=== PATIENT | male | born 1990 | race Caucasian/White ===

== ENCOUNTER 2017-08-15 15:20 | Emergency (ER) | payer BC, MEDICAID ==
[~2017-08-15] VITALS: Ht 180.3 cm; Wt 104.3 kg
[2017-08-15 15:27] VITALS: BP_SYST 137
[2017-08-15] MEDS ORDERED: LIDOCAINE/EPI 2% 1:100000 20 ML VIAL INJ ONE (15:45)
[2017-08-15] MEDS ORDERED: IBUPROFEN 800 MG TABLET PO ONE (15:45)
[2017-08-15] MEDS ORDERED: CEPHALEXIN 500 MG CAPSULE PO ONE (15:45)
[2017-08-15] MEDS ORDERED: SULFAMETHOXAZOLE/TRIMETHOPR DS 1 TABLET PO ONE (15:45)
[2017-08-15 16:25] VITALS: BP_SYST 137
== END 2017-08-15 16:25 | disposition home or self-care (01) ==
LOC: SED 15:20
DX: L05.01 Pilonidal cyst with abscess (principal); R03.0 Elevated blood-pressure reading, without diagnosis of hypertension; F17.210 Nicotine dependence, cigarettes, uncomplicated; Z71.6 Tobacco abuse counseling; Z88.1 Allergy status to other antibiotic agents
CPT/HCPCS: 10080; 99284